=== PATIENT | female | born 1955 | race Caucasian/White ===

== ENCOUNTER 2022-11-20 05:31 | Inpatient (IN) | payer BC ==
[~2022-11-20] VITALS: Ht 162.6 cm; Wt 72.8 kg
[2022-11-20] MEDS ORDERED: ACETAMINOPHEN 500 MG TABLET ONE (05:52)
[2022-11-20] MEDS ORDERED: GABAPENTIN 300 MG CAPSULE ONE (05:52)
[2022-11-20] MEDS ORDERED: GABAPENTIN 300 MG CAPSULE PO ONE (06:00)
[2022-11-20] MEDS ORDERED: ACETAMINOPHEN 500 MG TABLET PO ONE (06:00)
[2022-11-20 06:09] LABS: BILIRUBIN,URINE NEGATIVE (NEGATIVE); BLOOD, URINE 2+ (NEGATIVE); COLOR,URINE YELLOW (YELLOW); GLUCOSE,URINE NEGATIVE (NEGATIVE); KETONES,URINE NEGATIVE (NEGATIVE); LEUKOCYTE ESTERASE ,URINE TRACE (NEGATIVE); NITRITE, URINE NEGATIVE (NEGATIVE); PROTEIN URINE NEGATIVE (NEGATIVE); UROBILINOGEN,URINE 0.2 (0.2-1.0)
[2022-11-20 06:33] LABS: CLARITY/URINE SLIGHTLY CLOUDY (CLEAR)
[2022-11-20 06:38] LABS: BACTERIA,URINE None Seen /HPF (None Seen)
[2022-11-20] MEDS ORDERED: CEFAZOLIN SOD 2 GM in D5W 50 ML IV ONE (06:45)
[2022-11-20] MEDS ORDERED: BUPIVACAINE LIPOSOME/PF 266 MG/20 ML VIAL INFIL ONE (07:30)
[2022-11-20] MEDS ORDERED: ePHEDrine sulfate 50 MG/ML VIAL ONE (07:32)
[2022-11-20] MEDS ORDERED: ONDANSETRON HCL 4 MG/2 ML VIAL ONE (07:32)
[2022-11-20] MEDS ORDERED: MIDAZOLAM HCL/PF 2 MG/2 ML SYRINGE ONE (07:32)
[2022-11-20] MEDS ORDERED: fentaNYL CITRATE/PF 100 MCG/2 ML AMP ONE (07:32)
[2022-11-20] MEDS ORDERED: SEVOFLURANE 15 MIN GAS INH ONE (07:32)
[2022-11-20] MEDS ORDERED: VANCOMYCIN HCL 1000 MG/VIAL IV ONE (07:32)
[2022-11-20] MEDS ORDERED: PROPOFOL 200MG/ 20ML VIAL (DIPRIVAN) IV ONE (07:32)
[2022-11-20] MEDS ORDERED: SUGAMMADEX SODIUM 200 MG/2 ML VIAL IV ONE (07:32)
[2022-11-20] MEDS ORDERED: METOCLOPRAMIDE HCL 10 MG/2 ML VIAL ONE (07:32)
[2022-11-20] MEDS ORDERED: TRANEXAMIC ACID 1,000 MG/10 ML VIAL ONE (07:32)
[2022-11-20] MEDS ORDERED: ROCURONIUM BROMIDE 10 MG/ML (ZEMURON) ONE (07:32)
[2022-11-20] MEDS ORDERED: ZINC100T2 PO (07:38)
[2022-11-20] MEDS ORDERED: ESCI20TA PO (07:38)
[2022-11-20] MEDS ORDERED: CALC200T47 PO (07:38)
[2022-11-20] MEDS ORDERED: SIMV-341 PO (07:38)
[2022-11-20] MEDS ORDERED: EPIG1POW PO (07:38)
[2022-11-20] MEDS ORDERED: OMEP20CA15 PO (07:38)
[2022-11-20] MEDS ORDERED: MELO-89 PO (07:38)
[2022-11-20] MEDS ORDERED: RESEYE OP (07:38)
[2022-11-20] MEDS ORDERED: LR 1,000 ML IV SCH (09:45)
[2022-11-20] MEDS ORDERED: HYDROmorphone 1 MG/ML INJ. CARTRIDGE IVP PRN ×4 (09:45→11:00)
[2022-11-20] MEDS ORDERED: NALOXONE HCL 0.4 MG/ML AMP (NARCAN) IVP PRN ×6 (09:45→10:30)
[2022-11-20] MEDS ORDERED: KETOROLAC TROMETHAMINE 30 MG VIAL IVP PRN (09:45)
[2022-11-20] MEDS ORDERED: MEPERIDINE 50 MG/ML VIAL IVP PRN (09:45)
[2022-11-20] MEDS ORDERED: DIPHENHYDRAMINE HCL 25 MG CAPSULE PO PRN (10:30)
[2022-11-20] MEDS ORDERED: METOCLOPRAMIDE HCL 10 MG/2 ML VIAL IVP PRN (10:30)
[2022-11-20] MEDS ORDERED: BISACODYL 10 MG/SUPPOSITORY RC PRN (10:30)
[2022-11-20] MEDS ORDERED: LACTULOSE 20 GM/30 ML UDC PO PRN (10:30)
[2022-11-20 10:50] VITALS: BP_SYST 127
[2022-11-20] MEDS ORDERED: traMADol HCL HCL 50 MG TABLET (ULTRAM) PO PRN (11:00)
[2022-11-20] MEDS ORDERED: oxyCODONE HCL 5 MG TABLET PO PRN ×2 (11:00)
[2022-11-20] MEDS ORDERED: LORATADINE 10 MG TABLET PO PRN (11:00)
[2022-11-20] MEDS ORDERED: ONDANSETRON HCL 4 MG/2 ML VIAL IVP PRN (11:45)
[2022-11-20] MEDS: LR 1,000 ML IV SCH ×2 (12:14→21:34)
[2022-11-20] MEDS: ACETAMINOPHEN 500 MG TABLET PO SCH ×2 (15:05→21:33)
[2022-11-20] MEDS: KETOROLAC TROMETHAMINE 10 MG TABLET (TORADOL) PO SCH ×2 (15:08→21:33)
[2022-11-20] MEDS: ceFAZolin SODIUM 2 GM in D5W 50 ML IV SCH ×2 (15:09→21:30)
[2022-11-20 19:35] VITALS: BP_SYST 134
[2022-11-20] MEDS: SENNOSIDES/DOCUSATE SODIUM 1 TAB TABLET(SENOKOT-S) PO SCH (21:32)
[2022-11-21] VITALS: BP_SYST 134
[2022-11-21 05:16] LABS: HEMATOCRIT 37.5 % (36-48); HEMOGLOBIN 12.8 g/dL (12.0-16.0)
[2022-11-21] MEDS: ceFAZolin SODIUM 2 GM in D5W 50 ML IV SCH (05:30)
[2022-11-21] MEDS: KETOROLAC TROMETHAMINE 10 MG TABLET (TORADOL) PO SCH (05:31)
[2022-11-21] MEDS: ACETAMINOPHEN 500 MG TABLET PO SCH (05:32)
[2022-11-21 05:35] LABS: CALCIUM 8.2 mg/dL (8.4-11.0); CREATININE 1.07 mg/dL (0.55-1.30)
[2022-11-21 08:00] VITALS: BP_SYST 144
[2022-11-21] MEDS: SENNOSIDES/DOCUSATE SODIUM 1 TAB TABLET(SENOKOT-S) PO SCH (08:19)
[2022-11-21] MEDS ORDERED: ASPIRIN 81 MG TAB.CHEW PO SCH (09:00)
[2022-11-21 10:58] VITALS: BP_SYST 144
[2022-11-21] MEDS ORDERED: CELECOXIB 100 MG CAPSULE PO SCH (12:00)
== END 2022-11-21 11:00 | disposition home or self-care (01) | DRG 483 ==
LOC: SMU 05:31
PROVIDERS: ADMIT Orthopaedic Surgery Sports Medicine; ATTEND Orthopaedic Surgery Sports Medicine
PROC: 0LS40ZZ Reposition Left Upper Arm Tendon, Open Approach (ICD-10-PCS; 2022-11-20)
PROC: 0RRK00Z Replacement of Left Shoulder Joint with Reverse Ball and Socket Synthetic Substitute, Open Approach (ICD-10-PCS; principal; 2022-11-20 07:30)
DX: M19.012 Primary osteoarthritis, left shoulder (principal); M65.822 Other synovitis and tenosynovitis, left upper arm
CPT/HCPCS: 36415; 76000; 80048; 81000; 83051; 85014; 86886; 86900; 86901; 87081; 88304; 88305; 88311; 96379; C9290; J0690; J2405; J2704; J2765; J3010; J3370; J3465; J3490; J7060